=== PATIENT | male | born 1965 | race Two or more races ===

== ENCOUNTER 2018-04-26 01:40 | Emergency (ER) | payer MEDICAID ==
[~2018-04-26] VITALS: Ht 175.3 cm; Wt 122.7 kg
[2018-04-26 01:55] VITALS: BP 135/91
[2018-04-26 02:08] LABS: GLUCOSE,POINT OF CARE 329 MG/DL (70-110)
[2018-04-26] MEDS ORDERED: FURO40 PO (02:19)
[2018-04-26] MEDS ORDERED: INS7030 SQ ×2 (02:19)
[2018-04-26] MEDS ORDERED: ASPI-1182 PO (02:19)
[2018-04-26] MEDS ORDERED: SPIR25 PO (02:19)
[2018-04-26] MEDS ORDERED: ATOR10TA84 PO (02:19)
[2018-04-26] MEDS ORDERED: LISI-660 PO (02:19)
[2018-04-26] MEDS ORDERED: CYAN100099 PO (02:19)
[2018-04-26] MEDS ORDERED: LIDOCAINE HCL 2%/EPI 1:200,000/PF 20 ML VIAL INJ ONE (04:30)
[2018-04-26] MEDS ORDERED: LIDOCAINE HCL 1%/EPI 1:200,000/PF 30 ML VIAL INJ ONE (04:30)
[2018-04-26] MEDS ORDERED: BACITRACIN 0.9 GM PACKET OINTMENT TP ONE (05:15)
== END 2018-04-26 05:28 | disposition home or self-care (01) ==
LOC: EMS 01:42
DX: I83.891 Varicose veins of right lower extremity with other complications (principal); E11.9 Type 2 diabetes mellitus without complications; I50.9 Heart failure, unspecified; Z91.018 Allergy to other foods
CPT/HCPCS: 35226; 82962; 99284; J3490